=== PATIENT | female | born 1970 | race Caucasian/White ===

== ENCOUNTER 2018-08-16 13:48 | Inpatient (IN) | payer MEDICAID ==
[2018-08-16] MEDS ORDERED: MIDAZOLAM 1 MG/ML 2 ML INJ (16:59)
[2018-08-16] MEDS ORDERED: PHENYLephrine (100 MCG/ML) 5ML SYG ×2 (17:09→19:04)
[2018-08-16] MEDS ORDERED: hydrALAzine 20 MG INJ (17:53)
[2018-08-16] MEDS ORDERED: NALOXONE (0.4 MG/ML) INJ IV (18:00)
[2018-08-16] MEDS ORDERED: NACL 0.9% 3 ML SYG IV (18:00)
[2018-08-16] MEDS ORDERED: FENTAnyl 50 MCG/ML VIAL ×2 (19:50→20:06)
[2018-08-16] MEDS ORDERED: GLYCOPYRROLATE 0.4 MG INJ (20:04)
[2018-08-16] MEDS ORDERED: NEOSTIGMINE 3 MG/3 ML SYRINGE (20:04)
[2018-08-16] MEDS ORDERED: PROPOFOL 20 ML (20:04)
[2018-08-16] MEDS ORDERED: CEFAZOLIN 1 GM INJ (20:04)
[2018-08-16] MEDS ORDERED: ROCURONIUM 50 MG INJ (20:04)
[2018-08-16] MEDS ORDERED: LIDOCAINE 2% (SDV) 5 ML INJ (20:04)
[2018-08-16] MEDS ORDERED: ONDANSETRON 4 MG INJ (20:06)
[2018-08-16] MEDS ORDERED: FENTAnyl 50 MCG/ML VIAL IV (20:30)
[2018-08-16] MEDS ORDERED: METOCLOPRAMIDE 10 MG INJ IV (20:30)
[2018-08-16] MEDS ORDERED: LABETALOL HCL 20MG INJ IV (20:30)
[2018-08-16] MEDS ORDERED: DIPHENHYDRAMINE 50 MG INJ IV (20:30)
[2018-08-16] MEDS ORDERED: hydrALAzine 20 MG INJ IV (20:30)
[2018-08-16] MEDS: GELATIN SIZE 100 SPONGE (20:31)
[2018-08-16] MEDS: THROMBIN 5000 UNIT VIAL ×2 (20:32)
[2018-08-16] MEDS: HEPARIN 1000 UNITS/ML 10 ML INJ (20:33)
[2018-08-16] MEDS: MEPERIDINE 25 MG INJ SC (20:48)
[2018-08-16] MEDS: CEFAZOLIN 1 GM/50 ML (PMX) 50 ML IVPB (20:57)
[2018-08-16] MEDS: MIDAZOLAM 1 MG/ML 2 ML INJ IV (21:23)
[2018-08-16] MEDS: FENTAnyl 50 MCG/ML VIAL IV (21:43)
[2018-08-16] MEDS: POTASSIUM CHLORIDE 20 MEQ in SOD CHLORIDE 0.9% 1,000 ML IV (21:50)
[2018-08-16] MEDS ORDERED: NS + KCL 20 MEQ 1,000 ML IV (22:00)
[2018-08-16] MEDS: ONDANSETRON 4 MG INJ IV (22:33)
[2018-08-17] MEDS: CEFAZOLIN 1 GM/50 ML (PMX) 50 ML IVPB ×3 (00:14→12:00)
[2018-08-17] MEDS: OXYCODONE/ACETAMINOPHEN (5/325) TAB PO ×5 (00:15→20:29)
[2018-08-17] MEDS: LORAZEPAM 2 MG INJ IV ×3 (00:15→20:29)
[2018-08-17 04:58] LABS: HEMATOCRIT 33.5 % (37.0-47.0); HEMOGLOBIN 11.3 g/dl (12.0-16.0)
[2018-08-17 05:20] LABS: ANION GAP 11 (8-16); BLOOD UREA NITROGEN 12 mg/dl (7-20); CALCIUM 8.9 mg/dl (8.4-10.2); CARBON DIOXIDE 23 mmol/L (21-31); CHLORIDE 111 mmol/L (97-110); CREATININE 0.81 mg/dl (0.44-1.00); GLUCOSE 145 mg/dl (70-220); POTASSIUM 3.9 mmol/L (3.5-5.1); SODIUM 141 mmol/L (135-144)
[2018-08-17] MEDS: FENTAnyl 50 MCG/ML VIAL IV ×6 (06:04→21:19)
[2018-08-17] MEDS ORDERED: POTASSIUM CHLORIDE 0 ML IVPB (07:51)
[2018-08-17] MEDS: ONDANSETRON 4 MG INJ IV ×2 (07:53→15:41)
[2018-08-17] MEDS: MEPERIDINE 25 MG INJ SC ×3 (07:54→18:07)
[2018-08-17] MEDS: POTASSIUM CHLORIDE 20 MEQ in SOD CHLORIDE 0.9% 1,000 ML IV ×2 (08:00→15:41)
[2018-08-17] MEDS ORDERED: CEFAZOLIN 1 GM INJ (10:39)
[2018-08-17] MEDS ORDERED: ROCURONIUM 50 MG INJ (10:39)
[2018-08-17] MEDS ORDERED: PROPOFOL 20 ML (10:39)
[2018-08-17] MEDS ORDERED: MIDAZOLAM 1 MG/ML 2 ML INJ (10:39)
[2018-08-17] MEDS ORDERED: POLYMYXIN/BACITRACIN 1L IRRIG (12:04)
[2018-08-17] MEDS ORDERED: ONDANSETRON 4 MG INJ IV (12:30)
[2018-08-17] MEDS ORDERED: ALBUMIN HUMAN 5% 250 ML IV (12:30)
[2018-08-17] MEDS ORDERED: METOCLOPRAMIDE 10 MG INJ IV (12:30)
[2018-08-17] MEDS ORDERED: hydrALAzine 20 MG INJ IV (12:30)
[2018-08-17] MEDS ORDERED: HYDROmorphONE 1 MG/5 ML IV SYRINGE IV ×3 (12:30)
[2018-08-17] MEDS ORDERED: EPHEDrine SULFATE 50 MG/5 ML SYG IV (12:30)
[2018-08-17] MEDS ORDERED: LABETALOL HCL 20MG INJ IV (12:30)
[2018-08-17] MEDS ORDERED: FENTAnyl 50 MCG/ML VIAL IV ×3 (12:30)
[2018-08-17] MEDS ORDERED: PHENYLephrine (100 MCG/ML) 5ML SYG (12:42)
[2018-08-17] MEDS ORDERED: ACETAMINOPHEN 1000MG/100ML IV 100 ML (12:56)
[2018-08-17] MEDS ORDERED: HETASTARCH 6% NACL 500 ML (12:56)
[2018-08-17] MEDS ORDERED: GELATIN SIZE 100 SPONGE (13:00)
[2018-08-17] MEDS ORDERED: THROMBIN 5000 UNIT VIAL (13:00)
[2018-08-17] MEDS: POLYMYXIN/BACITRACIN 1L IRRIG (13:14)
[2018-08-17] MEDS ORDERED: METOCLOPRAMIDE 10 MG INJ (13:31)
[2018-08-17] MEDS ORDERED: ONDANSETRON 4 MG INJ (13:31)
[2018-08-17] MEDS ORDERED: DEXAMETHASONE 4 MG/ML 1 ML INJ (13:31)
[2018-08-17] MEDS: ROPIVACAINE 0.5 % 30 ML VIAL (15:05)
[2018-08-17] MEDS ORDERED: SUGAMMADEX SODIUM 200 MG/2 ML VIAL IV (15:10)
[2018-08-18] MEDS: LORAZEPAM 2 MG INJ IV ×4 (00:27→18:44)
[2018-08-18] MEDS: OXYCODONE/ACETAMINOPHEN (5/325) TAB PO ×6 (00:28→23:15)
[2018-08-18] MEDS: FENTAnyl 50 MCG/ML VIAL IV ×5 (03:56→21:25)
[2018-08-18] MEDS: POTASSIUM CHLORIDE 20 MEQ in SOD CHLORIDE 0.9% 1,000 ML IV (04:18)
[2018-08-18 05:31] LABS: ADD MAN DIFF? NO
[2018-08-18 05:33] LABS: BASOPHILS % 0.1 % (0.0-2.0); EOSINOPHILS % 0.1 % (0.0-7.0); HEMATOCRIT 24.5 % (37.0-47.0); LYMPHOCYTES # 1.6 10^3/ul (0.8-2.9); LYMPHOCYTES % 17.5 % (15.0-51.0); MEAN CORPUSCULAR HEMOGLOBIN 31.7 pg (29.0-33.0); MEAN CORPUSCULAR HGB CONC 32.7 g/dl (32.0-37.0); MEAN CORPUSCULAR VOLUME 97.2 fl (82.0-101.0); MONOCYTE # 0.5 10^3/ul (0.3-0.9); MONOCYTES % 6.1 % (0.0-11.0); NEUTROPHIL # 6.7 10^3/ul (1.6-7.5); NEUTROPHILS % 75.7 % (39.0-77.0); PLATELET COUNT 221 10^3/UL (140-415); RED BLOOD COUNT 2.52 10^6/ul (4.20-5.40); RED CELL DISTRIBUTION WIDTH 14.6 % (11.5-14.5)
[2018-08-18 05:33] LABS: WHITE BLOOD COUNT 8.9 10^3/ul (4.8-10.8)
[2018-08-18 05:52] LABS: ANION GAP 6 (8-16); BLOOD UREA NITROGEN 8 mg/dl (7-20); CALCIUM 7.9 mg/dl (8.4-10.2); CARBON DIOXIDE 26 mmol/L (21-31); CHLORIDE 113 mmol/L (97-110); GLUCOSE 100 mg/dl (70-220); POTASSIUM 3.7 mmol/L (3.5-5.1); SODIUM 141 mmol/L (135-144)
[2018-08-18] MEDS: ONDANSETRON 4 MG INJ IV (07:24)
[2018-08-18] MEDS: MEPERIDINE 25 MG INJ SC ×4 (07:36→18:44)
[2018-08-18] MEDS: IBUPROFEN 800 MG TAB PO (11:25)
[2018-08-18] MEDS: GABAPENTIN 400 MG CAP PO ×2 (12:18→20:42)
[2018-08-18] MEDS: hydrOXYzine HCL 25 MG TAB PO ×2 (12:19→20:40)
[2018-08-18] MEDS: TIZANIDINE 4 MG TAB PO ×2 (12:26→21:00)
[2018-08-18] MEDS: ATENOLOL 50 MG TAB PO (20:35)
[2018-08-18] MEDS: MONTELUKAST 10 MG TAB PO (20:40)
[2018-08-18] MEDS: GEMFIBROZIL 600 MG TAB PO (20:42)
[2018-08-18] MEDS: SOD CHLORIDE 0.9% 500 ML IV (20:45)
[2018-08-18] MEDS: AMITRIPTYLINE 50 MG TAB PO (21:00)
[2018-08-18] MEDS: BUSPIRONE 10 MG TAB PO (21:25)
[2018-08-19] MEDS: FENTAnyl 50 MCG/ML VIAL IV ×2 (02:45→06:18)
[2018-08-19] MEDS: OXYCODONE/ACETAMINOPHEN (5/325) TAB PO ×3 (04:35→16:18)
[2018-08-19] MEDS: LEVOTHYROXINE 25 MCG TAB PO (06:19)
[2018-08-19] MEDS: MEPERIDINE 25 MG INJ SC ×3 (08:06→18:12)
[2018-08-19] MEDS: hydrOXYzine HCL 25 MG TAB PO ×3 (09:00→21:19)
[2018-08-19] MEDS: HYDROCHLOROTHIAZIDE 12.5 MG CAP PO (09:00)
[2018-08-19] MEDS: BUSPIRONE 10 MG TAB PO ×2 (09:13→22:10)
[2018-08-19] MEDS: TIZANIDINE 4 MG TAB PO ×3 (09:13→21:19)
[2018-08-19] MEDS: GABAPENTIN 400 MG CAP PO ×3 (09:13→21:19)
[2018-08-19] MEDS: GEMFIBROZIL 600 MG TAB PO ×2 (09:13→21:19)
[2018-08-19] MEDS: ATENOLOL 50 MG TAB PO (21:00)
[2018-08-19] MEDS: MONTELUKAST 10 MG TAB PO (21:17)
[2018-08-19] MEDS: AMITRIPTYLINE 50 MG TAB PO (21:18)
[2018-08-19] MEDS: oxyCODONE (CR) 15 MG TAB [oxyCONTIN] PO (21:18)
[2018-08-20] MEDS: OXYCODONE/ACETAMINOPHEN (5/325) TAB PO (03:49)
[2018-08-20 06:00] LABS: ADD MAN DIFF? NO
[2018-08-20 06:04] LABS: BASOPHILS % 0.5 % (0.0-2.0); EOSINOPHILS # 0.2 10^3/ul (0.0-0.5); EOSINOPHILS % 2.1 % (0.0-7.0); HEMATOCRIT 23.4 % (37.0-47.0); HEMOGLOBIN 7.7 g/dl (12.0-16.0); LYMPHOCYTES # 2.1 10^3/ul (0.8-2.9); LYMPHOCYTES % 25.6 % (15.0-51.0); MEAN CORPUSCULAR HEMOGLOBIN 31.6 pg (29.0-33.0); MEAN CORPUSCULAR HGB CONC 32.9 g/dl (32.0-37.0); MEAN CORPUSCULAR VOLUME 95.9 fl (82.0-101.0); MEAN PLATELET VOLUME 10.8 fl (7.4-10.4); MONOCYTE # 0.6 10^3/ul (0.3-0.9); MONOCYTES % 7.5 % (0.0-11.0); NEUTROPHIL # 5.1 10^3/ul (1.6-7.5); NEUTROPHILS % 63.8 % (39.0-77.0); NUCLEATED RED BLOOD CELLS% 0.5 /100WBC (0.0-0.0); PLATELET COUNT 243 10^3/UL (140-415); RED BLOOD COUNT 2.44 10^6/ul (4.20-5.40); RED CELL DISTRIBUTION WIDTH 13.8 % (11.5-14.5)
[2018-08-20 06:21] LABS: ANION GAP 8 (8-16); BLOOD UREA NITROGEN 5 mg/dl (7-20); CALCIUM 8.5 mg/dl (8.4-10.2); CARBON DIOXIDE 29 mmol/L (21-31); CHLORIDE 109 mmol/L (97-110); CREATININE 0.66 mg/dl (0.44-1.00); GLUCOSE 98 mg/dl (70-220); POTASSIUM 3.8 mmol/L (3.5-5.1); SODIUM 142 mmol/L (135-144)
[2018-08-20] MEDS: LEVOTHYROXINE 25 MCG TAB PO (07:23)
[2018-08-20] MEDS ORDERED: HYDROmorphONE 2 MG TAB PO (07:30)
[2018-08-20] MEDS: TIZANIDINE 4 MG TAB PO ×3 (09:17→21:58)
[2018-08-20] MEDS: BUSPIRONE 10 MG TAB PO ×2 (09:17→21:58)
[2018-08-20] MEDS: GABAPENTIN 400 MG CAP PO ×3 (09:17→21:57)
[2018-08-20] MEDS: hydrOXYzine HCL 25 MG TAB PO ×3 (09:18→21:57)
[2018-08-20] MEDS: GEMFIBROZIL 600 MG TAB PO ×2 (09:18→21:57)
[2018-08-20] MEDS: oxyCODONE (CR) 15 MG TAB [oxyCONTIN] PO ×2 (09:19→21:58)
[2018-08-20] MEDS: HYDROCHLOROTHIAZIDE 12.5 MG CAP PO (09:22)
[2018-08-20] MEDS: ACETAMINOPHEN 1000MG/100ML IV 100 ML IVPB ×3 (09:44→18:35)
[2018-08-20] MEDS: MONTELUKAST 10 MG TAB PO (21:57)
[2018-08-20] MEDS: AMITRIPTYLINE 50 MG TAB PO (21:58)
[2018-08-20] MEDS: ATENOLOL 50 MG TAB PO (22:03)
[2018-08-21] MEDS: ACETAMINOPHEN 1000MG/100ML IV 100 ML IVPB ×6 (01:22→23:42)
[2018-08-21 05:36] LABS: ADD MAN DIFF? NO
[2018-08-21 05:38] LABS: WHITE BLOOD COUNT 6.6 10^3/ul (4.8-10.8)
[2018-08-21 05:38] LABS: BASOPHILS % 0.3 % (0.0-2.0); EOSINOPHILS # 0.2 10^3/ul (0.0-0.5); EOSINOPHILS % 3.3 % (0.0-7.0); HEMATOCRIT 24.6 % (37.0-47.0); HEMOGLOBIN 8.2 g/dl (12.0-16.0); LYMPHOCYTES # 1.9 10^3/ul (0.8-2.9); LYMPHOCYTES % 28.2 % (15.0-51.0); MEAN CORPUSCULAR HEMOGLOBIN 31.7 pg (29.0-33.0); MEAN CORPUSCULAR HGB CONC 33.3 g/dl (32.0-37.0); MEAN PLATELET VOLUME 10.2 fl (7.4-10.4); MONOCYTE # 0.5 10^3/ul (0.3-0.9); MONOCYTES % 7.5 % (0.0-11.0); NEUTROPHILS % 60.1 % (39.0-77.0); NUCLEATED RED BLOOD CELLS% 0.6 /100WBC (0.0-0.0); PLATELET COUNT 295 10^3/UL (140-415); RED BLOOD COUNT 2.59 10^6/ul (4.20-5.40); RED CELL DISTRIBUTION WIDTH 13.7 % (11.5-14.5)
[2018-08-21 06:06] LABS: ANION GAP 7 (8-16); BLOOD UREA NITROGEN 8 mg/dl (7-20); CARBON DIOXIDE 28 mmol/L (21-31); CHLORIDE 109 mmol/L (97-110); CREATININE 0.61 mg/dl (0.44-1.00); GLUCOSE 98 mg/dl (70-220); POTASSIUM 3.2 mmol/L (3.5-5.1); SODIUM 141 mmol/L (135-144)
[2018-08-21] MEDS: LEVOTHYROXINE 25 MCG TAB PO (06:51)
[2018-08-21] MEDS: TIZANIDINE 4 MG TAB PO ×3 (08:44→20:20)
[2018-08-21] MEDS: GEMFIBROZIL 600 MG TAB PO ×2 (08:44→20:20)
[2018-08-21] MEDS: GABAPENTIN 400 MG CAP PO ×3 (08:44→20:19)
[2018-08-21] MEDS: hydrOXYzine HCL 25 MG TAB PO ×3 (08:44→20:19)
[2018-08-21] MEDS: BUSPIRONE 10 MG TAB PO ×2 (08:44→20:19)
[2018-08-21] MEDS: HYDROCHLOROTHIAZIDE 12.5 MG CAP PO (08:45)
[2018-08-21] MEDS: oxyCODONE (CR) 15 MG TAB [oxyCONTIN] PO ×2 (08:50→20:21)
[2018-08-21] MEDS: POTASSIUM CHLORIDE 20 MEQ POWDER FOR ORAL SOLN PO (11:31)
[2018-08-21] MEDS: OXYCODONE/ACETAMINOPHEN (10/325) TAB PO ×2 (13:28→23:38)
[2018-08-21 16:39] LABS: ADD UMIC YES; UR ASCORBIC ACID NEGATIVE (NEGATIVE); UR BACTERIA FEW /HPF (NONE SEEN); UR BILIRUBIN (Dip) NEGATIVE (NEGATIVE); UR BLOOD (Dip) 1+ mg/dL (NEGATIVE); UR CLARITY CLEAR (CLEAR); UR COLOR YELLOW (YELLOW); UR GLUCOSE (Dip) NEGATIVE (NEGATIVE); UR KETONES (Dip) NEGATIVE (NEGATIVE); UR LEUKOCYTE ESTERASE (Dip) NEGATIVE Leu/ul (NEGATIVE); UR NITRITE (Dip) NEGATIVE (NEGATIVE); UR RBC 1 /HPF (0-5); UR SPECIFIC GRAVITY (Dip) 1.017 (1.003-1.030); UR SQUAMOUS EPITHELIAL CELL FEW /HPF (FEW); UR TOTAL PROTEIN (Dip) NEGATIVE (NEGATIVE); UR UROBILINOGEN (Dip) 1+ mg/dL (NEGATIVE); UR WBC 1 /HPF (0-5)
[2018-08-21] MEDS: MONTELUKAST 10 MG TAB PO (20:19)
[2018-08-21] MEDS: AMITRIPTYLINE 50 MG TAB PO (20:19)
[2018-08-21] MEDS: ATENOLOL 50 MG TAB PO (20:26)
[2018-08-22] MEDS: ACETAMINOPHEN 1000MG/100ML IV 100 ML IVPB ×3 (05:53→17:56)
[2018-08-22] MEDS: LEVOTHYROXINE 25 MCG TAB PO (06:10)
[2018-08-22 06:12] LABS: ADD MAN DIFF? NO
[2018-08-22 06:22] LABS: BASOPHILS % 0.6 % (0.0-2.0); EOSINOPHILS # 0.3 10^3/ul (0.0-0.5); EOSINOPHILS % 3.8 % (0.0-7.0); HEMATOCRIT 25.3 % (37.0-47.0); HEMOGLOBIN 8.3 g/dl (12.0-16.0); LYMPHOCYTES # 2.3 10^3/ul (0.8-2.9); LYMPHOCYTES % 32.9 % (15.0-51.0); MEAN CORPUSCULAR HEMOGLOBIN 31.6 pg (29.0-33.0); MEAN CORPUSCULAR HGB CONC 32.8 g/dl (32.0-37.0); MEAN CORPUSCULAR VOLUME 96.2 fl (82.0-101.0); MEAN PLATELET VOLUME 10.2 fl (7.4-10.4); MONOCYTE # 0.5 10^3/ul (0.3-0.9); MONOCYTES % 7.7 % (0.0-11.0); NEUTROPHIL # 3.7 10^3/ul (1.6-7.5); NEUTROPHILS % 54.1 % (39.0-77.0); NUCLEATED RED BLOOD CELLS # 0.1 10^3/ul (0.0-0.0); NUCLEATED RED BLOOD CELLS% 0.9 /100WBC (0.0-0.0); PLATELET COUNT 354 10^3/UL (140-415); RED BLOOD COUNT 2.63 10^6/ul (4.20-5.40)
[2018-08-22 06:22] LABS: WHITE BLOOD COUNT 6.9 10^3/ul (4.8-10.8)
[2018-08-22 06:43] LABS: ALANINE AMINOTRANSFERASE 30 IU/L (13-69); ALBUMIN 2.6 g/dl (3.3-4.9); ALKALINE PHOSPHATASE 59 IU/L (42-121); ASPARTATE AMINO TRANSFERASE 24 IU/L (15-46); BILIRUBIN,INDIRECT 0.2 mg/dl (0-1.1); BILIRUBIN,TOTAL 0.2 mg/dl (0.2-1.3); TOTAL PROTEIN 5.1 g/dl (6.1-8.1)
[2018-08-22 06:49] LABS: ANION GAP 8 (8-16); BLOOD UREA NITROGEN 11 mg/dl (7-20); CARBON DIOXIDE 31 mmol/L (21-31); CHLORIDE 105 mmol/L (97-110); CREATININE 0.74 mg/dl (0.44-1.00); GLUCOSE 102 mg/dl (70-220); POTASSIUM 4.1 mmol/L (3.5-5.1); SODIUM 140 mmol/L (135-144)
[2018-08-22] MEDS: GABAPENTIN 400 MG CAP PO ×3 (08:33→20:26)
[2018-08-22] MEDS: GEMFIBROZIL 600 MG TAB PO ×2 (08:33→20:26)
[2018-08-22] MEDS: TIZANIDINE 4 MG TAB PO ×3 (08:33→20:27)
[2018-08-22] MEDS: hydrOXYzine HCL 25 MG TAB PO ×3 (08:33→20:26)
[2018-08-22] MEDS: HYDROCHLOROTHIAZIDE 12.5 MG CAP PO (08:34)
[2018-08-22] MEDS: BUSPIRONE 10 MG TAB PO ×2 (08:34→20:45)
[2018-08-22] MEDS: oxyCODONE (CR) 15 MG TAB [oxyCONTIN] PO ×2 (09:58→22:29)
[2018-08-22] MEDS: OXYCODONE/ACETAMINOPHEN (10/325) TAB PO (11:22)
[2018-08-22] MEDS: MONTELUKAST 10 MG TAB PO (20:26)
[2018-08-22] MEDS: AMITRIPTYLINE 50 MG TAB PO (20:27)
[2018-08-22] MEDS: ATENOLOL 50 MG TAB PO (20:27)
[2018-08-23] MEDS: ACETAMINOPHEN 1000MG/100ML IV 100 ML IVPB ×4 (01:06→17:30)
[2018-08-23 06:12] LABS: ADD MAN DIFF? NO
[2018-08-23 06:20] LABS: BASOPHILS % 0.5 % (0.0-2.0); EOSINOPHILS # 0.3 10^3/ul (0.0-0.5); EOSINOPHILS % 3.6 % (0.0-7.0); HEMATOCRIT 26.9 % (37.0-47.0); HEMOGLOBIN 8.7 g/dl (12.0-16.0); LYMPHOCYTES # 2.5 10^3/ul (0.8-2.9); LYMPHOCYTES % 31.3 % (15.0-51.0); MEAN CORPUSCULAR HEMOGLOBIN 31.1 pg (29.0-33.0); MEAN CORPUSCULAR HGB CONC 32.3 g/dl (32.0-37.0); MEAN CORPUSCULAR VOLUME 96.1 fl (82.0-101.0); MEAN PLATELET VOLUME 10.1 fl (7.4-10.4); MONOCYTE # 0.6 10^3/ul (0.3-0.9); MONOCYTES % 7.4 % (0.0-11.0); NEUTROPHIL # 4.5 10^3/ul (1.6-7.5); NEUTROPHILS % 56.2 % (39.0-77.0); NUCLEATED RED BLOOD CELLS% 0.5 /100WBC (0.0-0.0); PLATELET COUNT 423 10^3/UL (140-415); RED CELL DISTRIBUTION WIDTH 14.1 % (11.5-14.5)
[2018-08-23 06:44] LABS: ANION GAP 11 (8-16); BLOOD UREA NITROGEN 10 mg/dl (7-20); CALCIUM 9.5 mg/dl (8.4-10.2); CARBON DIOXIDE 31 mmol/L (21-31); CHLORIDE 101 mmol/L (97-110); CREATININE 0.75 mg/dl (0.44-1.00); GLUCOSE 101 mg/dl (70-220); POTASSIUM 3.6 mmol/L (3.5-5.1); SODIUM 139 mmol/L (135-144)
[2018-08-23] MEDS: LEVOTHYROXINE 25 MCG TAB PO (06:46)
[2018-08-23 07:11] LABS: MAGNESIUM 1.6 mg/dl (1.7-2.5)
[2018-08-23] MEDS: oxyCODONE (CR) 15 MG TAB [oxyCONTIN] PO ×2 (08:22→22:20)
[2018-08-23] MEDS: GABAPENTIN 400 MG CAP PO ×3 (08:23→22:08)
[2018-08-23] MEDS: GEMFIBROZIL 600 MG TAB PO ×2 (08:23→22:08)
[2018-08-23] MEDS: HYDROCHLOROTHIAZIDE 12.5 MG CAP PO (08:24)
[2018-08-23] MEDS: TIZANIDINE 4 MG TAB PO ×3 (08:24→22:08)
[2018-08-23] MEDS: BUSPIRONE 10 MG TAB PO ×2 (08:24→22:07)
[2018-08-23] MEDS: hydrOXYzine HCL 25 MG TAB PO ×3 (08:24→22:08)
[2018-08-23] MEDS: ATENOLOL 50 MG TAB PO ×2 (08:24→22:20)
[2018-08-23] MEDS: MAGNESIUM SULFATE 1 GM/D5W 100 ML IVPB (16:38)
[2018-08-23] MEDS: OXYCODONE/ACETAMINOPHEN (10/325) TAB PO (16:39)
[2018-08-23] MEDS: MONTELUKAST 10 MG TAB PO (22:07)
[2018-08-23] MEDS: AMITRIPTYLINE 50 MG TAB PO (22:09)
[2018-08-24 05:44] LABS: ADD MAN DIFF? NO
[2018-08-24 05:50] LABS: WHITE BLOOD COUNT 8.5 10^3/ul (4.8-10.8)
[2018-08-24 05:50] LABS: BASOPHILS % 0.5 % (0.0-2.0); EOSINOPHILS # 0.3 10^3/ul (0.0-0.5); EOSINOPHILS % 3.4 % (0.0-7.0); HEMOGLOBIN 8.8 g/dl (12.0-16.0); LYMPHOCYTES # 2.4 10^3/ul (0.8-2.9); MEAN CORPUSCULAR HEMOGLOBIN 31.3 pg (29.0-33.0); MEAN CORPUSCULAR HGB CONC 32.6 g/dl (32.0-37.0); MEAN CORPUSCULAR VOLUME 96.1 fl (82.0-101.0); MEAN PLATELET VOLUME 9.8 fl (7.4-10.4); MONOCYTE # 0.6 10^3/ul (0.3-0.9); MONOCYTES % 7.4 % (0.0-11.0); NEUTROPHIL # 5.1 10^3/ul (1.6-7.5); NUCLEATED RED BLOOD CELLS% 0.4 /100WBC (0.0-0.0); PLATELET COUNT 436 10^3/UL (140-415); RED BLOOD COUNT 2.81 10^6/ul (4.20-5.40); RED CELL DISTRIBUTION WIDTH 13.9 % (11.5-14.5)
[2018-08-24 06:11] LABS: MAGNESIUM 1.9 mg/dl (1.7-2.5)
[2018-08-24] MEDS: LEVOTHYROXINE 25 MCG TAB PO (06:18)
[2018-08-24] MEDS: ACETAMINOPHEN 1000MG/100ML IV 100 ML IVPB ×4 (06:21→18:00)
[2018-08-24 06:24] LABS: ANION GAP 8 (8-16); BLOOD UREA NITROGEN 14 mg/dl (7-20); CALCIUM 9.2 mg/dl (8.4-10.2); CARBON DIOXIDE 30 mmol/L (21-31); CHLORIDE 106 mmol/L (97-110); CREATININE 0.81 mg/dl (0.44-1.00); GLUCOSE 107 mg/dl (70-220); POTASSIUM 4.1 mmol/L (3.5-5.1); SODIUM 140 mmol/L (135-144)
[2018-08-24] MEDS: ATENOLOL 50 MG TAB PO (08:30)
[2018-08-24] MEDS: oxyCODONE (CR) 15 MG TAB [oxyCONTIN] PO (08:30)
[2018-08-24] MEDS: TIZANIDINE 4 MG TAB PO ×2 (08:31→12:10)
[2018-08-24] MEDS: hydrOXYzine HCL 25 MG TAB PO ×2 (08:31→12:10)
[2018-08-24] MEDS: HYDROCHLOROTHIAZIDE 12.5 MG CAP PO (08:31)
[2018-08-24] MEDS: GEMFIBROZIL 600 MG TAB PO (08:31)
[2018-08-24] MEDS: GABAPENTIN 400 MG CAP PO ×2 (08:31→12:10)
[2018-08-24] MEDS: BUSPIRONE 10 MG TAB PO (08:32)
[2018-08-24] MEDS: OXYCODONE/ACETAMINOPHEN (10/325) TAB PO (13:23)
== END 2018-08-24 19:10 | disposition home or self-care (01) | DRG 455 ==
LOC: 6WM 08-19 09:30 → REC 13:48 → ICU 20:17
PROC: 0SG10A0 Fusion of 2 or more Lumbar Vertebral Joints with Interbody Fusion Device, Anterior Approach, Anterior Column, Open Approach (ICD-10-PCS; principal; 2018-08-16 15:00)
PROC: 0SG30A0 Fusion of Lumbosacral Joint with Interbody Fusion Device, Anterior Approach, Anterior Column, Open Approach (ICD-10-PCS; 2018-08-16 15:00)
PROC: 0SB20ZZ Excision of Lumbar Vertebral Disc, Open Approach (ICD-10-PCS; 2018-08-16 15:00)
PROC: 0SB40ZZ Excision of Lumbosacral Disc, Open Approach (ICD-10-PCS; 2018-08-16 15:00)
PROC: 0SG10K1 Fusion of 2 or more Lumbar Vertebral Joints with Nonautologous Tissue Substitute, Posterior Approach, Posterior Column, Open Approach (ICD-10-PCS; 2018-08-16 16:56)
PROC: 0SG30K1 Fusion of Lumbosacral Joint with Nonautologous Tissue Substitute, Posterior Approach, Posterior Column, Open Approach (ICD-10-PCS; 2018-08-16 16:56)
PROC: 0SB00ZZ Excision of Lumbar Vertebral Joint, Open Approach (ICD-10-PCS; 2018-08-16 16:56)
DX: M47.26 Other spondylosis with radiculopathy, lumbar region (principal); G89.18 Other acute postprocedural pain; I10 Essential (primary) hypertension; J44.9 Chronic obstructive pulmonary disease, unspecified; E03.9 Hypothyroidism, unspecified; F17.200 Nicotine dependence, unspecified, uncomplicated; F32.9 Major depressive disorder, single episode, unspecified; E78.5 Hyperlipidemia, unspecified; M54.9 Dorsalgia, unspecified; F41.9 Anxiety disorder, unspecified; E66.9 Obesity, unspecified; E88.2 Lipomatosis, not elsewhere classified; M71.38 Other bursal cyst, other site; Z68.32 Body mass index [BMI] 32.0-32.9, adult
CPT/HCPCS: 72100; 72114; 72131; 80048; 80076; 81001; 83735; 84443; 84703; 85014; 85018; 85025; 86850; 86900; 86901; 86920; 87081; 87086; 88304; 88311; 93306; 97110; 97116; 97162; 97530